=== PATIENT | female | born 1975 | race Caucasian/White ===

== ENCOUNTER 2019-02-26 19:09 | Emergency (ER) | payer OTHER, MEDICAID, SELFPAY ==
[2019-02-26 19:10] VITALS: BP 157/88; PULSE 86; RESP 16; TEMP 36.7; O2SAT 97
--- NOTE | 2019-02-26 19:40 | EKG12_ITS ---
Test Reason : CP Blood Pressure : / mmHG Vent. Rate : 085 BPM Atrial Rate : 085 BPM P-R Int : 138 ms QRS Dur : 072 ms QT Int : 364 ms P-R-T Axes : 056 020 057 degrees QTc Int : 433 ms Normal sinus rhythm Confirmed by WEI BRANHAM, YUDY ([id number]), industrial editor CHATO MARIE ([id number]) on 03/02/2019 10:15:07 AM Referred By: MARIKA Confirmed By:YUDY CARVAJAL MD
--- NOTE | 2019-02-26 19:41 | ED.VIS.CHEST ---
History of Present Illness Chief Complaint: Chest Pain Informant: Patient Onset: Weeks - 3 Activity at onset: Unknown Timing: Continuous Quality: Pain Location: Substernal Current Severity: Moderate Maximum Severity: Moderate Worsened By: Movement of Torso, Palpation, Breathing. Not Worsened By: Exertion Relieved By: Rest, Remaining Still. Not Relieved By: Antacids, NSAIDS Associated Symptoms: Dyspnea, Cough. Negative for: Nausea, Vomiting, Diaphoresis, Fever, Lightheadedness, Acid Reflux, Palpitations Narrative: Patient states she has had this pain since November off and on. She had it then, it went away for a little while, started coming back but it has been constant and prominent in the past 3 weeks every day. Movement makes it worse. She takes ibuprofen from time to time for chronic low back pain, but it does not seem to help this chest discomfort. She has tried antacids without help 2. She has a history of IBS and always has abdominal pain and nausea, those are no different. She has chronic back pain 2 and does not think that is associated with this. She states she felt short of breath a little bit, earlier today but for the most part has had no dyspnea. She has a chronic cough, she occasionally produces yellow sputum. She is a smoker. She denies any fevers, leg swelling or pain in her calves, no history of DVT or PE, no recent long travel or hospitalization. - Past Medical History (1) IBS (irritable bowel syndrome) Status: Chronic Past Medical History - Allergies and Home Meds Allergies/Adverse Reactions: Allergies No Known Allergies Allergy (Verified 02/26/19 19:13) Primary Care Physician: NOT,DEFINED [NON-STAFF] - Surgical History: cholecystectomy, hysterectomy, - - Lives: With Family Smoking Status: Current every day smoker Drugs: None Review of Systems General: Denies: Chills, Fever, Sweats Eyes: Denies: Visual changes - bilaterally, Diplopia ENT: Denies: Bilateral ear pain, Rhinorrhea, Sore throat Cardiovascular: Reports: Chest pain. Denies: Palpitations Respiratory: Reports: Dyspnea, Cough, Sputum. Denies: Dyspnea on exertion, Orthopnea Gastrointestinal: Reports: Abdominal pain, Nausea. Denies: Vomiting, Diarrhea, Melena, Hematochezia Genitourinary: Denies: Dysuria, Hematuria, Frequency Musculoskeletal: Reports: Back pain. Denies: Swelling, Extremity Pain Skin: Denies: Rash, Wounds Neurological: Denies: Headache, Weakness, Numbness Physical Exam Vital Signs/Narrative: Vital Signs Temp Pulse Resp BP Pulse Ox 02/26/19 19:10 98.0 F 86 16 157/88 H 97 Inital Vital Signs reviewed: Yes General: Well nourished, Well developed, No Acute Distress Head: Normocephalic, Atraumatic Eyes: Perrl, EOMI ENT: Moist mucous membranes, No rhinorrhea Neck: Supple, Nontender, No JVD Cardiovascular: Regular rate, Regular rhythm, No murmurs, Normal S1, Normal S2. Negative for: Tachycardia Respiratory: No distress, CTA bilaterally, Chest tenderness - parasternal bilat, lower sternum, reproducing her cp Abdomen: Soft, Nondistended, Normal bowel sounds, Tender - epigastric only. Negative for: Guarding, Rebound tenderness, Pulsatile mass Back: Nontender, Normal Inspection. Negative for: CVA tenderness Extremities: Nontender, No edema. Negative for: Calf Tenderness Skin: Normal color, No rash, No Trauma Neurological: Alert, Oriented x3, Cranial nerves II-XII grossly intact, Normal Strength, Normal Sensation, Normal Gait Psychological: Normal affect, Normal Mood Diagnostic/Tx/Re-eval Impressions Chest X-Ray 02/26/19 19:55 IMPRESSION: Negative chest radiograph. Electronically Signed: Robert Stevens, at 20:07 EST Tel , Service support , 02/26/19 19:55 Chest PA and Lateral [RAD] Stat Laboratory Results 02/26/19 02/26/19 19:27 19:27 WBC 11.0 RBC 4.24 Hgb 13.6 Hct 39.8 MCV 93.9 MCH 32.1 H MCHC 34.2 RDW Std Deviation 43.2 RDW Coeff of Lilia 12.7 Plt Count 393 MPV 9.2 Immature Gran % (Auto) 0.400 Neut % (Auto) 44.6 L Lymph % (Auto) 48.7 H Howard % (Auto) 4.8 Eos % (Auto) 1.0 Baso % (Auto) 0.5 Absolute Neuts (auto) 4.9 Absolute Lymphs (auto) 5.37 H Nucleated RBC % 0 Sodium 140 Potassium 3.8 Chloride 109 H Carbon Dioxide 27.0 Anion Gap 4 L BUN 9 Creatinine 0.82 Estim Creat Clear Calc 79.60 Est GFR (MDRD) Af Amer 97 Est GFR (MDRD) Non-Af 80 BUN/Creatinine Ratio 10.9 Glucose 84 Calcium 9.0 Troponin I < 0.015 - Rhythm Strip Rhythm Strip: Sinus Rhythm Rate: 85 Ectopy: None - EKG Initial EKG Interpretation: Sinus Rhythm, No Acute Injury Pattern - normal axis. normal EKG. Prior: No Prior Treatment: Toradol IV Repeat Eval: much improved - Medical Decision Making Although ibuprofen was not helping, she feels much better after Toradol. Her labs are unremarkable, her troponin is negative, her EKG is normal, her chest x-ray is normal despite her productive cough, and her PERC score is 0, ruling out pulmonary embolus as cause for the symptoms, especially in context of reproducible pain on palpation at the junction of the ribs and the sternum, consistent with costochondritis. I will put her on daily Mobic, in addition to Nexium which she used to take in helped for reflux symptoms but she has not been on in a long time, she is getting into [facility] and she is comfortable with this plan. ED Disposition - Plan for ED Patient: Disposition: Home or Assisted Living Diagnosis: Costochondritis, Epigastric pain Instructions: CHEST WALL PAIN, Costochondritis Prescriptions: Esomeprazole Magnesium 40 mg PO DAILY #30 capsule. Prescription Printed Meloxicam [Mobic] 15 mg PO DAILY #30 tab Prescription Printed Referrals: [facility] [Provider Group] - 1-2 Weeks
--- NOTE | 2019-02-26 19:42 | ED.RN ---
NO OLD EKG
[2019-02-26 19:54] LABS: Absolute Lymphocyte Count 5.37 X10^3/uL (0.83-4.51); Absolute Neutrophil Count 4.9 X10^3/uL (2.0-7.7); Basophil# 0.05 X10^3/uL; Basophil% 0.5 % (0-1); Eosinophil# 0.11 X10^3/uL; Hematocrit 39.8 % (37-47); Hemoglobin 13.6 g/dL (12.0-15.0); Lymphocyte # 5.37 X10^3/ul (4.0); Lymphocyte % 48.7 % (19-41); Mean Corp Hgb Conc 34.2 g/dL (32-36); Mean Corpuscular Hgb 32.1 pg (27.0-32.0); Mean Corpuscular Volume 93.9 fL (81-99); Mean Platelet Vol. 9.2 fl (6.2-12.0); Monocyte# 0.53 X10^3/uL; Monocyte% 4.8 % (0-10); NRBC Flagged by Analyzer 0 % (0-5); Neutrophil # 4.92 X10^3/uL (2.7-7.7); Neutrophil % 44.6 % (47-70); POSITIVE DIFFERENTIAL YES; Platelet Count 393 K/mm3 (150-450); RBC Distribution Width CV 12.7 % (11.6-14.6); RBC Distribution Width SD 43.2 fl (35.1-43.9); Red Blood Count 4.24 M/mm3 (4.2-5.4)
[2019-02-26 19:55] LABS: Differential Indicated SCAN CRITERIA MET
--- NOTE | 2019-02-26 19:55 | RAD_ITS ---
STUDY: X-RAY CHEST REASON FOR EXAM: Female, 43 years old. Chest pain. TECHNIQUE: PA and lateral COMPARISON: None. FINDINGS: No apparent pneumothorax, pneumonia, pleural effusion, or edema. Cardiac silhouette, natalie and mediastinal contours are within normal limits. No acute osseous abnormality. No evidence of free air under the diaphragm. RAD/Chest PA and Lateral IMPRESSION: Negative chest radiograph. Electronically Signed: Robert Stevens, at 20:07 EST Tel , Service support ,
[2019-02-26] MEDS: Ketorolac 30 MG/ML Syringe IV (20:06)
[2019-02-26 20:09] LABS: Anion Gap 4 (5-15); BUN 9 mg/dL (7-18); BUN/Creat Ratio 10.9 RATIO (10-20); Chloride 109 mmol/L (98-107); Creatinine, Serum 0.82 mg/dL (0.55-1.02); EST Glomerular Filtration Rate 80 mL/min (>60); Est Glom Filt Rate - Afr Amer 97 mL/min (>60); Glucose 84 mg/dL (74-106); Potassium 3.8 mmol/L (3.5-5.1); Sodium Level 140 mmol/L (136-145)
[2019-02-26 20:43] LABS: Anisocytosis RARE; Macrocytosis RARE; Platelet Estimate ADEQUATE (ADEQ); Red Cell Morphology N CHROM NORMAL (NORM C&C)
[2019-02-26 20:59] VITALS: BP 115/74; PULSE 78; RESP 13; O2SAT 96
[2019-02-27 14:21] LABS: Pathologist Review Reviewed
== END 2019-02-26 21:03 | disposition home or self-care (01) ==
PROVIDERS: Emergency Provider Emergency Medicine
DX: M94.0 Chondrocostal junction syndrome [Tietze] (principal); R10.13 Epigastric pain; F17.200 Nicotine dependence, unspecified, uncomplicated
CPT/HCPCS: 71046; 80048; 84484; 85025; 93005; 96374; 99283; A4216

== ENCOUNTER → 2019-04-01 | Outpatient (CLI) | payer OTHER, MEDICAID, SELFPAY ==
[2019-04-01 10:47] LABS: Bacteria 0 SEEN /hpf (None Seen); Mucous, Urine 0 SEEN /hpf (<or=2+); Red Blood Cells-Urine 0 SEEN /hpf (0-5); White Blood Cells 0 SEEN /hpf (0-5)
[2019-04-01 12:23] LABS: Absolute Lymphocyte Count 4.25 X10^3/uL (0.83-4.51); Absolute Neutrophil Count 6.2 X10^3/uL (2.0-7.7); Basophil# 0.07 X10^3/uL; Basophil% 0.6 % (0-1); Eosinophil# 0.09 X10^3/uL; Eosinophils% 0.8 % (0-5); Hematocrit 39.2 % (37-47); Hemoglobin 13.3 g/dL (12.0-15.0); Lymphocyte # 4.25 X10^3/ul (4.0); Lymphocyte % 37.8 % (19-41); Mean Corp Hgb Conc 33.9 g/dL (32-36); Mean Corpuscular Hgb 31.4 pg (27.0-32.0); Mean Corpuscular Volume 92.7 fL (81-99); Mean Platelet Vol. 9.6 fl (6.2-12.0); Monocyte% 5.3 % (0-10); NRBC Flagged by Analyzer 0 % (0-5); Neutrophil # 6.21 X10^3/uL (2.7-7.7); Neutrophil % 55.3 % (47-70); Platelet Count 468 K/mm3 (150-450); RBC Distribution Width CV 12.7 % (11.6-14.6); RBC Distribution Width SD 42.8 fl (35.1-43.9); Red Blood Count 4.23 M/mm3 (4.2-5.4); White Blood Count 11.2 K/mm3 (4.4-11.0)
[2019-04-01 12:38] LABS: Color, Urine Yellow (Yellow); Glucose, Dipstick Normal (Normal); Ketone-Dipstick Negative (Negative); Leukocyte Esterase-Dipstick Negative /ul (Negative); Nitrite-Dipstick Negative (Negative); Occult Blood-Urine Negative /ul (Negative); Protein-Dipstick Negative (Negative); Urine Bilirubin Dipstick Negative (Negative); Urine Clarity Clear (Clear); Urine Urobilinogen Normal (Normal)
[2019-04-01 12:45] LABS: Squamous Epithelial Cells - UA 0-5 SEEN /hpf (5-10)
[2019-04-01 12:56] LABS: Thyroid Stim Hormone (TSH) 1.11 uIU/mL (0.358-3.74)
[2019-04-01 13:08] LABS: Vitamin D,25 Hydroxy 34.1 ng/mL (29.95-100.01)
== END | disposition home or self-care (01) ==
LOC: MFPLAB 10:46
PROVIDERS: PCP Family Medicine; Referring Provider Family Medicine; Visit Provider Family Medicine
DX: E55.9 Vitamin D deficiency, unspecified (principal); F41.9 Anxiety disorder, unspecified; F32.9 Major depressive disorder, single episode, unspecified; Z72.0 Tobacco use
CPT/HCPCS: 36415; 81001; 82306; 84443; 85025

== ENCOUNTER 2019-09-15 06:37 | Day surgery (SDC) | payer OTHER, MEDICAID, SELFPAY ==
[2019-09-15] VITALS (10 sets, daily range): BP systolic 56–121; BP diastolic 24–68; PULSE 58–82; RESP 16; TEMP 36.2–36.9; O2SAT 96–99; BMI 30.9
--- NOTE | 2019-09-15 06:49 | HP.PCM_ITS ---
Problem List (1) Rectal hemorrhage Status: Acute History and Physical Date of Admission: 09/15/19 Intake Visit Reasons: C-Scope change bowel habits Chief Complaint: c-scope consult/change in bowel pattern [employer] Required: No Is patient in pain?: No Allergies No Known Allergies Allergy (Verified 09/04/19 09:14) Medications acetaminophen 325 mg capsule 325 mg PO ONCE PRN 09/04/19 [History Confirmed ] cholecalciferol (vitamin D3) 125 mcg (5,000 unit) capsule 125 mcg PO DAILY 09/04/19 [History Confirmed 09/04/19] duloxetine 60 mg capsule,delayed release 60 mg PO DAILY 09/04/19 [History Confir med 09/04/19] lactobacillus combination no.9 4 billion cell capsule PO DAILY cap 09/04/19 [History Confirmed 09/04/19] [facility] Medical History (Updated 09/04/19 @ 09:[address] Andrew Long MD) Rectal hemorrhage (Acute) IBS (irritable bowel syndrome) (Chronic) Abdominal pain (Acute) Arthritis (Acute) Blood in stool (Acute) Constipation (Acute) Depression with anxiety (Acute) Diarrhea (Acute) Hemorrhoids (Acute) History of back problems (Acute) History of change in bowel patterns (Acute) Nausea (Acute) Surgical History (Updated 09/04/19 @ 09:12 by Yoli Blount) History of (Acute) History of hysterectomy (Acute) History of laparoscopic cholecystectomy (Acute) History of tubal ligation (Acute) Family History (Updated 09/04/19 @ 09:13 by Yoli Blount) Grandmother Heart disease Kidney disease Father Heart disease Social History (Updated 09/04/19 @ 09:[address] Andrew Long MD) Smoking Status: Current every day smoker alcohol intake: current alcohol intake frequency: a few times a month substance use type: does not use HPI HPI HPI: NICOLE ARREOLA, is a 43 F who presents to the office today for surgical consultation regarding rectal bleeding. The patient is referred by Dr Bradly Estes and a written copy of my surgical consult recommendations will return to him. The patient states now for several months she has had bright red rectal bleeding as well as some mucus. She is multiple stools but she claims they are soft. Sometimes she can have constipation. She is not on any anticoagulant. Not allergic to any medicine. Family history is negative for colon cancer. She thinks possibly her father had colon polyps but that is not definitive. She knows her father had diverticular disease. She is got some nondescript low abdominal pain. She has never had a previous colonoscopy. The frequency of her stools is increasing. Most recent laboratory is April 01, 2019 white count 11.2 with a hemoglobin 13.3 hematocrit 39.2 platelet count 4 and 68,000. She is not feeling lightheaded or dizzy. She does not feel that she has had any Covid- 19 exposure. HPI HPI HPI: NICOLE ARREOLA, is a 43 F who presents to the office today for ROS General General: Yes weight change and fatigue; no appetite, colon cancer, breast cancer or weakness HEENT HEENT: No difficulty swallowing, eye injury, eye surgery, swollen glands or hoarseness Endo Endocrine: No thyroid disease, diabetes mellitus, thyroid cancer, Hair loss, heat intolerance or cold intolerance Skin Skin: Yes changing moles; no rash Breast Breast: No left breast lump, right breast lump, nipple discharge, breast pain, abnormal mammogram, abnormal US or breast enlargement Musc Musculoskeletal: Yes back problems and arthritis; no rheumatoid arthritis, gout or joint pain Cardio Cardiovascular: No murmur, pacemaker, heart disease, atrial fibrillation, high blood pressure, heart attack, heart stent, palpitations, shortness of breat with exertion or chest pain Psych Psychiatric: Yes depression and anxiety; no hearing voices Resp Respiratory: No shortness of breath, No sleep apnea, No cough, No COPD, No asthma, No emphysema, No wheezing Gastro Gastrointestinal: Yes abdominal pain, Yes nausea or vomiting, Yes diarrhea, Yes constipation, Yes blood in stool, No acid reflux, Yes hemorrhoids, No ulcers, No gallbladder problem, No black,tarry stools Zac Hematologic: No blood thinners, No blood disorders, No bleeding, No anemia, No blood clots Neuro Neurologic: No system reviewed and no additional complaints, except as docu, No as per HPI, No abnormal walking, No abnormal hearing, No abnormal movements, No abnormal speech, No behavioral changes, No burning sensations, No confusion, No seizure-like activity, No unsteadiness, No dizziness, No localized weakness, No frequent falls, No headache(s), No lack of coordination, No loss of vision, No memory loss, No numbness, No other visual disturbances, No radiating pain, No restless legs, No sensory deficit, No fainting, No tingling, No tremor(s), No weakness, No other Exam Const General: cooperative, comfortable, no acute distress Nutritional Appearance: obese Orientation: alert, awake HENMT Head: normal to inspection Chest Breast Palpation: No nipple discharge Resp Effort & Inspection: normal respiratory effort Auscultation: clear to auscultation bilaterally Cardio Rate: regular rate Rhythm: regular rhythm Heart Sounds: no murmurs GI Palpation: soft, no hepatosplenomegaly Neuro General: alert, awake Extrem General: no calf tenderness Psych Affect: normal affect Assessment & Plan Problems 1. Rectal hemorrhage K62.5 Plan Rectal bleeding with mucus of undetermined etiology. Patient claims that she has a history of IBS. She is not currently on any fiber supplementation. She is not being treated expressly for her IBS. We have provided her with recommendations to initiate fiber supplementation. I instructed her that we would proceed with a very thorough anal rectal exam at the time of her colonoscopy with possible biopsy or polypectomy as indicated. She is aware of the technique, benefit, risk, alternatives. She has had an opportunity to ask and have questions answered. She is aware that she is presenting during the Covid-19 pandemic. She is aware that the [facility] is reporting a low local incidence to date. We will schedule and proceed as noted. I am anticipating monitored anesthesia care. Because of her history of previous severe constipation I recommend a 2- day bowel prep. Careful inspection for any source of bleeding will be pursued consideration of possible random biopsies. Cc: Dr Bradly Long M.D., F.A.C.S. Coding Level of Care Code 42408 Diagnoses Rectal hemorrhage K62.5 09/04/19 0930 <Electronically signed by Andrew howard MD> Date _ Andrew Long MD I have re-examined the patient. There are no clinical changes since date of exam. Procedure Criteria Procedure Type: Elective COVID Risk Discussion: The surgeon/proceduralist and patient have discussed in detail the risk of exposure to and/or potential harm posed by the COVID-19 virus with having a surgery/procedure at this time versus the risk of delaying the surgery/procedure. It is not possible to know either the risk of delaying the surgery or procedure or chance of getting an infection with perfect accuracy, but a joint decision was made between the patient and the surgeon/proceduralist to proceed at this time with the scheduled surgery/procedure as indicated on the consent form.
[2019-09-15] MEDS: Lactated Ringers 1,000 ML 100 ML IV (07:12)
--- NOTE | 2019-09-15 07:30 | COLBX_PTH ---
PATIENT: NICOLE VINCENT LOC: EN U#:[id number] AGE/SX: 43/F ROOM: RE09/15/[address]: Dr. Andrew Long MD : 1975 BED: DIS: 09/15/2019 SPEC #: [id number] RECD: 09/15/19 09:15 STATUS: BRITTANIE BABAR #: [id number] APOLINAR: 09/15/19 07:[address]: Andrew Long DEPT: SURGICAL PATHOLOGY RECD BY: Emma Hatch ENTERED: 09/15/19 14:23 SP TYPE: COLON BX OT DR: Dr. Bradly Estes MD Tissues: A - Rectum, NOS B - Rectum, NOS Procedures: Surgery Specimen Level IV HEADER OPERATION: Colonoscopy (MAC) PRE-OP DIAGNOSIS: Rectal hemorrhage TISSUE SUBMITTED: A - Biopsy of sessile polyp of proximal rectum, B - Pedunculated polyp of proximal rectum MICROSCOPIC DIAGNOSIS A. Proximal rectal polyp, biopsy: Fragments of hyperplastic polyp. B. Pedunculated polyp of proximal rectum, polypectomy: Tubulovillous adenoma. AM:amber 09/16/19 MICROSCOPIC DESCRIPTION Slides are reviewed. GROSS DESCRIPTION A - Received in fixative is one container labeled with the patient's name and designated biopsy of sessile polyp of proximal rectum. The specimen consists of multiple irregular fragments of light mcduffie soft tissue that in aggregate measure 1 x 0.4 x 0.1 cm. The specimen is totally submitted in one cassette. B - Received in fixative is one container labeled with the patient's name and designated pedunculated polyp of proximal rectum. The specimen consists of a mcduffie-pink polyp measuring 1.4 x 1 x 0.6 cm. The specimen is inked, bisected and submitted entirely in one cassette. / SJ:amber 09/15/19 TC:5 CPT: 20895 x2
--- NOTE | 2019-09-15 08:11 | OP.COLON_ITS ---
Patient Name: Yessenia Galeas Procedure Date: 09/15/2019 7:38 AM Date of : 1975 Age: 43 Procedure: Colonoscopy Indications: Rectal bleeding Providers: Andrew Long MD Referring MD: Bradly Estes Medicines: See the Anesthesia note for documentation of the administered medications Patient Profile: Last Colonoscopy: none. The patient's first colonoscopy is today. Complications: No immediate complications. Procedure: Pre-Anesthesia Assessment: - Prior to the procedure, a History and Physical was performed, and patient medications and allergies were reviewed. The patient's tolerance of previous anesthesia was also reviewed. The risks and benefits of the procedure and the sedation options and risks were discussed with the patient. All questions were answered, and informed consent was obtained. Prior Anticoagulants: The patient has taken no previous anticoagulant or antiplatelet agents. ASA Grade Assessment: II - A patient with mild systemic disease. After reviewing the risks and benefits, the patient was deemed in satisfactory condition to undergo the procedure. After I obtained informed consent, the scope was passed under direct vision. Throughout the procedure, the patient's blood pressure, pulse, and oxygen saturations were monitored continuously. The Colonoscope was introduced through the anus and advanced to the cecum, identified by appendiceal orifice and ileocecal valve. The colonoscopy was performed without difficulty. The patient tolerated the procedure well. The quality of the bowel preparation was good. The ileocecal valve and the appendiceal orifice were photographed. Scope In: 7:45:46 AM Scope Withdrawal Time 0 hours 13 minutes 46 seconds Scope Out: 8:03:14 AM Total Procedure Duration Time 0 hours 17 minutes 28 seconds Findings: The digital rectal exam findings include non-thrombosed external hemorrhoids, non-thrombosed internal hemorrhoids and internal hemorrhoids that prolapse with straining, but spontaneously regress to the resting position (Grade II). A 6 mm polyp was found in the rectum. The polyp was sessile. The polyp was removed with a cold biopsy forceps. Resection and retrieval were complete. A 15 mm polyp was found in the rectum. The polyp was pedunculated. The polyp was removed with a hot snare. Resection and retrieval were complete. To prevent bleeding post-intervention, one hemostatic clip was successfully placed. There was no bleeding at the end of the procedure. Scattered diverticula were found in the sigmoid colon. Impression: - Non-thrombosed external hemorrhoids, non-thrombosed internal hemorrhoids and internal hemorrhoids that prolapse with straining, but spontaneously regress to the resting position (Grade II) found on digital rectal exam. - One 6 mm polyp in the rectum, removed with a cold biopsy forceps. Resected and retrieved. - One 15 mm polyp in the rectum, removed with a hot snare. Resected and retrieved. Clip was placed. - Diverticulosis in the sigmoid colon. Recommendation: - Discharge patient to home. - Resume previous diet. - Continue present medications. - Repeat colonoscopy in 3 years for surveillance based on pathology results. - Telephone my office for pathology results in 1 week. I suspect the larger pedunculated polyp as source of rectal bleeding. Two other adjacent sessile polyps cold forcep aggressively biopsied and submitted separately from larger polyp. Procedure Code(s): --- Professional --- 36982, Colonoscopy, flexible; with removal of tumor(s), polyp(s), or other lesion(s) by snare technique 59567, 59, Colonoscopy, flexible; with biopsy, single or multiple Diagnosis Code(s): --- Professional --- K64.1, Second degree hemorrhoids K64.4, Residual hemorrhoidal skin tags K62.1, Rectal polyp K62.5, Hemorrhage of anus and rectum K57.30, Diverticulosis of large intestine without perforation or abscess without bleeding CPT copyright 2017 [employer]. All rights reserved. The codes documented in this report are preliminary and upon certified hyperbaric technician review may be revised to meet current compliance requirements. Andrew Long MD 09/15/2019 8:11:22 AM This report has been signed electronically. Number of Addenda: 0 Note Initiated On: 09/15/2019 7:38 AM
--- NOTE | 2019-09-15 08:11 | OP.CCLET_ITS ---
09/15/2019 Bradly Estes [address] [place] [address] Re : Colonoscopy procedure for Yessenia Galeas Dear Dr. Estes This procedure was performed on Sunday, September 15, 2019. My impressions and recommendations are as follows: Impressions : - Non-thrombosed external hemorrhoids, non-thrombosed internal hemorrhoids and internal hemorrhoids that prolapse with straining, but spontaneously regress to the resting position (Grade II) found on digital rectal exam. - One 6 mm polyp in the rectum, removed with a cold biopsy forceps. Resected and retrieved. - One 15 mm polyp in the rectum, removed with a hot snare. Resected and retrieved. Clip was placed. - Diverticulosis in the sigmoid colon. Recommendations : - Discharge patient to home. - Resume previous diet. - Continue present medications. - Repeat colonoscopy in 3 years for surveillance based on pathology results. - Telephone my office for pathology results in 1 week. I suspect the larger pedunculated polyp as source of rectal bleeding. Two other adjacent sessile polyps cold forcep aggressively biopsied and submitted separately from larger polyp. My findings are described in the full procedure note, which is enclosed. If I can be of further assistance, please feel free to contact me at Doctor phone number(s): Work: . Sincerely, Andrew Long MD 09/15/2019 8:11:22 AM This report has been signed electronically.
== END 2019-09-15 09:26 | disposition home or self-care (01) ==
LOC: EN 06:38 → AC 06:38
PROVIDERS: Anesthesiology; PCP Family Medicine; Referring Provider Family Medicine; Visit Provider Surgery
PROC: 0DJD8ZZ Inspection of Lower Intestinal Tract, Via Natural or Artificial Opening Endoscopic (ICD-10-PCS; CPT 45378; principal; 2019-09-15 07:25)
DX: D12.8 Benign neoplasm of rectum (principal); K57.30 Diverticulosis of large intestine without perforation or abscess without bleeding; K64.1 Second degree hemorrhoids; M19.90 Unspecified osteoarthritis, unspecified site; F17.200 Nicotine dependence, unspecified, uncomplicated; E66.9 Obesity, unspecified; K21.9 Gastro-esophageal reflux disease without esophagitis; Z68.30 Body mass index [BMI] 30.0-30.9, adult; Z11.59 Encounter for screening for other viral diseases
CPT/HCPCS: 45380; 45385; 87635; 88305; G2023; J7120; A4216; J2405; U0003

== ENCOUNTER → 2019-09-18 | Outpatient (CLI) | payer OTHER, MEDICAID, SELFPAY ==
[2019-09-15 06:51] VITALS: BMI 30.9
[2019-09-18 15:47] LABS: Vitamin D,25 Hydroxy 46.2 ng/mL
== END | disposition home or self-care (01) ==
LOC: MFPLAB 13:43
PROVIDERS: PCP Family Medicine; Referring Provider Family Medicine; Visit Provider Family Medicine
DX: E55.9 Vitamin D deficiency, unspecified (principal)
CPT/HCPCS: 36415; 82306

== ENCOUNTER → 2019-12-18 | Outpatient (CLI) | payer OTHER, MEDICAID, SELFPAY ==
[2019-09-15 06:51] VITALS: BMI 30.9
[2019-12-18 10:38] LABS: Mucous, Urine 0 SEEN /hpf (<or=2+); Red Blood Cells-Urine 0 SEEN /hpf (0-5); Squamous Epithelial Cells - UA 0 SEEN /hpf (5-10); White Blood Cells 0 SEEN /hpf (0-5)
[2019-12-18 13:43] LABS: Absolute Lymphocyte Count 4.94 X10^3/uL (0.83-4.51); Absolute Neutrophil Count 3.3 X10^3/uL (2.0-7.7); Basophil# 0.04 X10^3/uL; Basophil% 0.5 % (0-1); Color, Urine Yellow (Yellow); Eosinophil# 0.09 X10^3/uL; Glucose, Dipstick Normal (Normal); Hematocrit 41.6 % (37-47); Hemoglobin 13.6 g/dL (12.0-15.0); Ketone-Dipstick Negative (Negative); Leukocyte Esterase-Dipstick 25 /ul (Negative); Lymphocyte # 4.94 X10^3/ul (4.0); Lymphocyte % 55.7 % (19-41); Mean Corp Hgb Conc 32.7 g/dL (32-36); Mean Corpuscular Hgb 31.4 pg (27.0-32.0); Mean Corpuscular Volume 96.1 fL (81-99); Mean Platelet Vol. 9.8 fl (6.2-12.0); Monocyte# 0.45 X10^3/uL; Monocyte% 5.1 % (0-10); NRBC Flagged by Analyzer 0 % (0-5); Neutrophil # 3.33 X10^3/uL (2.7-7.7); Neutrophil % 37.5 % (47-70); Nitrite-Dipstick Negative (Negative); Occult Blood-Urine Negative /ul (Negative); Platelet Count 437 K/mm3 (150-450); Protein-Dipstick Negative (Negative); RBC Distribution Width CV 12.7 % (11.6-14.6); RBC Distribution Width SD 45.2 fl (35.1-43.9); Red Blood Count 4.33 M/mm3 (4.2-5.4); Urine Bilirubin Dipstick Negative (Negative); Urine Clarity Clear (Clear); Urine Urobilinogen Normal (Normal); White Blood Count 8.9 K/mm3 (4.4-11.0)
[2019-12-18 14:00] LABS: Bacteria 1+ /hpf (None Seen)
[2019-12-18 14:40] LABS: Vitamin D,25 Hydroxy 31.6 ng/mL
== END | disposition home or self-care (01) ==
LOC: MFPLAB 10:35
PROVIDERS: PCP Family Medicine; Referring Provider Family Medicine; Visit Provider Family Medicine
DX: E55.9 Vitamin D deficiency, unspecified (principal); Z72.0 Tobacco use
CPT/HCPCS: 36415; 81001; 82306; 85025

== ENCOUNTER 2022-11-28 23:27 | Emergency (ER) | payer OTHER, MEDICAID, SELFPAY ==
[2022-11-28 23:28] VITALS: BP 151/84; PULSE 84; RESP 16; TEMP 36.8; O2SAT 99; BMI 28.7
--- NOTE | 2022-11-29 00:01 | EDS_ITS ---
HPI History of Present Illness Chief Complaint: Wound Informant: patient Narrative Narrative: [id number] female presents with left ring finger pain and suspected infection that has been going on for 4 weeks that started soon after getting her nails done. She does not recall any obvious injury during getting her nails done. She states she had tips. She does not recall of them manipulating her cuticles, but she indicates that it started on the radial aspect near the cuticle like a paronychia. Now she is having discharge coming from the end of the nail, beneath it, and the nail was loose and that is the main area where she has pain, not the area of the cuticle/nail root. She states that she has stabbed that area with needles several times and had scant amounts of clear fluid come out, this is all over the past month. She denies any systemic symptoms or soreness proximal to the distal phalanx of that particular finger. This is the first time in the past month she has sought care for this problem. [facility] Medical History Abdominal pain Arthritis Blood in stool Constipation Depression with anxiety Diarrhea Hemorrhoids History of back problems History of change in bowel patterns IBS (irritable bowel syndrome) Nausea Rectal hemorrhage Home Medications acetaminophen 325 mg capsule (Tylenol) 325 mg PO ONCE PRN Pain Or Fever 09/04/19 [History Last Taken Unknown] cholecalciferol (vitamin D3) 125 mcg (5,000 unit) capsule 125 mcg PO DAILY 09/04/19 [History Last Taken Unknown] duloxetine 60 mg capsule,delayed release 60 mg PO DAILY 09/04/19 [History Last Taken Unknown] lactobacillus combination no.9 4 billion cell capsule (Adult 50 Plus Probiotic) 1 tab PO DAILY 09/04/19 [History Last Taken Unknown] cephalexin 500 mg capsule 500 mg PO Q6 #40 CAPSULES 11/29/22 [Rx Last Taken Unknown] fluconazole 150 mg tablet 150 mg PO .once #1 TAB 11/29/22 [Rx Last Taken Unknown] mupirocin 2 % topical ointment 1 applic topical BID #15 grams 11/29/22 [Rx Last Taken Unknown] Allergy/AdvReac Type Severity Reaction Status Date / Time bee venom protein (honey bee) Allergy Hives Verified 11/28/22 23:30 Family History (Updated 07/17/20 @ 09:13 by Yoli Blount) Grandmother Heart disease Kidney disease Father Heart disease Surgical History History of History of hysterectomy History of laparoscopic cholecystectomy History of tubal ligation Social History Smoking Status: Current every day smoker tobacco type: cigarettes alcohol intake: current alcohol intake frequency: a few times a month substance use type: does not use ROS ROS ED Constitutional Constitutional ED: Denies chills or fever(s) Musculoskeletal Musculoskeletal: Reports extremity pain; Denies neck pain Integumentary Denies Abrasions, rash or wounds Neurologic Neurologic: Denies paresthesias or weakness EXAM Physical Exam Const Vital Signs: 11/28/22 23:28 Temperature 98.3 F Temperature Source Temporal Pulse Rate 84 Respiratory Rate 16 Blood Pressure 151/84 H Blood Pressure Mean 106 Pulse Ox 99 Oxygen Delivery Method Room Air Positive well nourished and well developed General Appearance ED: well developed and NAD Neck full ROM and supple Back/Spine normal ROM and normal to inspection Extremity Extremity Narrative: Left ring finger: Very slight swelling and erythema to the radial aspect of the left paronychia, does not involve the fold/root/cuticle of the nail, there is a scab where the patient has been stabbing with needles, there is no fluctuance or tenderness right now the patient states it is pruritic in that area. Distally, the nail seems to be somewhat loose from the bed and there is what appears to be a scant amount of purulent discharge beneath the nail. There is no abscess. The pad of the finger is soft and nondistended and nontender. The whole area of the nail is mildly tender subjectively but objectively she does not have severe/significant tenderness to any of the areas. There is no lymphangitis or erythema/findings proximal to the DIPJ. Neuro oriented x3, no focal motor deficits and no sensory deficits noted Sensorium / Orientation: alert Psych mental status grossly normal and thought process normal Skin no wounds Rashes: no rashes MDM MDM MDM Narrative Medical decision making narrative: There is no fluctuance/suspected abscess in the paronychial fold to suggest to me that an I&D is indicated or will be helpful right now as I discussed with her. She appears to have a release valve beneath the nail distally where there is some discharge. The nail root is intact and attached firmly to the nailbed and I see no indication for removing the nail at this time. There does not appear to be a severe process going on. I think prescribing her systemic antibiotics and ibuprofen topically to the affected area along with recommending twice daily warm soapy soaks until the discharge is gone is reasonable at this time and having her follow-up. I would suspect a bacterial infection is most likely, I considered fungal infection but I think that is less likely here given the discharge, only thought about that because of the pruritus she complains of, she is also using Neosporin and it is possible she has a minor local allergy to polymyxin B so we are holding that and prescribing mupirocin instead, which will also give her MRSA coverage. That is thought to be less likely since this has been going on for a month and looks very benign. Discharge Plan Triage Chief Complaint: Wound ED Provider: Easton Murdock Dx/Rx/DC Orders Clinical Impression: Infection of fingernail of left hand Instructions: ED Paronychia of the Finger or Toe Prescriptions: New cephalexin [cephalexin] 500 mg capsule 500 mg PO Q6 Qty: 40 0RF fluconazole 150 mg tablet 150 mg PO .once Qty: 1 0RF mupirocin 2 % ointment 1 applic topical BID Qty: 15 0RF Rx Instructions: to affected area No Action duloxetine 60 mg capsule,delayed release(DR/EC) 60 mg PO DAILY cholecalciferol (vitamin D3) 125 mcg (5,000 unit) capsule 125 mcg PO DAILY acetaminophen [Tylenol] 325 mg capsule 325 mg PO ONCE PRN (Reason: Pain Or Fever) Adult 50 Plus Probiotic 4 billion cell capsule 1 tab PO DAILY Primary Care Provider: Bradly Estes Referrals: Bradly Estes MD [Primary Care Provider] - 1 Week if not improving Disposition Disposition: Home, Self Care
[2022-11-29 00:46] VITALS: RESP 18
== END 2022-11-29 00:47 | disposition home or self-care (01) ==
PROVIDERS: Emergency Provider Emergency Medicine; PCP Family Medicine; Visit Provider Emergency Medicine
DX: L03.012 Cellulitis of left finger (principal); F17.210 Nicotine dependence, cigarettes, uncomplicated; F41.8 Other specified anxiety disorders; Z90.710 Acquired absence of both cervix and uterus; Z90.49 Acquired absence of other specified parts of digestive tract
CPT/HCPCS: 99282